=== PATIENT | male | born 1955 | race Caucasian/White ===

== ENCOUNTER 2021-04-03 21:44 | Emergency (ER) | payer OTHER ==
[~2021-04-03 21:44] MED LIST: ASPIRIN CHEWABL81 MG PO; BRILINTA90 MG PO; COREG 3.125M3.125 MG PO; FUROSEMIDE 40MG40 MG PO; LIPITOR40 MG PO; NEURONTIN100 MG PO; NITROGLYCERIN0.4 MG PO; OMEPRAZOLE40 MG PO; UROCIT-K10 MEQ PO
[2021-04-03 22:10] LABS: BASOPHIL 0.7 % (0-2); EOSINOPHIL 3.4 % (0-7); HCT 37.6 % (42.0-52.0); HGB 13.2 g/dl (13.2-18.0); LYMPHOCYTE 27.5 % (15-48); MCHC 35.1 g/dL (32.0-36.0); MCV 91.3 fL (78.0-100.0); MONOCYTE 8.6 % (0-12); MPV 10.8 fL (6.0-9.5); NEUTROPHIL 59.4 % (41-80); NRBC 0; PLT 189 K/uL (150-400); RBC 4.12 M/uL (4.70-6.00); RDW 13.1 % (11.5-14.0); WBC 7.4 K/uL (4.0-10.5)
[2021-04-03 22:28] LABS: ALBUMIN 3.6 g/dL (3.4-5.0); BILIRUBIN - TOTAL 0.4 mg/dL (0.2-1.0); BUN/CREAT RATIO (CALC) 10.6 RATIO; CREATININE 1.04 mg/dL (0.67-1.17); GLOBULIN (CALCULATION) 3.4 g/dL; MAGNESIUM 2.3 mg/dL (1.8-2.4); POTASSIUM 3.8 mmol/L (3.5-5.1)
[2021-04-03 22:37] LABS: PRO-BNP 366 pg/mL (<125)
[2021-04-04] MEDS ORDERED: BLEPH-105 ML OU (00:54)
== END 2021-04-04 01:05 | disposition home or self-care (01) ==
LOC: FER 21:44
PROVIDERS: Nurse Practitioner Family
DX: I20.8 Other forms of angina pectoris (principal); H16.132 Photokeratitis, left eye; S05.02XA Injury of conjunctiva and corneal abrasion without foreign body, left eye, initial encounter; I25.2 Old myocardial infarction; I50.9 Heart failure, unspecified; J44.9 Chronic obstructive pulmonary disease, unspecified; Z95.5 Presence of coronary angioplasty implant and graft; X58.XXXA Exposure to other specified factors, initial encounter
CPT/HCPCS: 36415; 71045; 80053; 83735; 83880; 84484; 85025; 93005